=== PATIENT | female | born 1995 | race Caucasian/White ===

== ENCOUNTER 2024-04-05 10:20 | Inpatient (IN) | payer BC ==
[2024-04-05] MEDS ORDERED: Sodium Chloride 0.9% 10 ML Syringe FLUSH PRN (15:19)
[2024-04-05] MEDS ORDERED: Terbutaline 1 MG/ML SDV SUBCUT PRN (15:19)
[2024-04-05] MEDS ORDERED: Water For Irrigation,Sterile 1,000 ML Container IRR PRN (15:19)
[2024-04-05] MEDS ORDERED: Misoprostol 200 MCG Tab PO PRN (15:19)
[2024-04-05] MEDS ORDERED: Methylergonovine 0.2 MG/1 ML Amp IM PRN (15:19)
[2024-04-05] MEDS ORDERED: Sodium Chloride 0.9% 2.5 ML Syringe FLUSH PRN (15:19)
[2024-04-05] MEDS ORDERED: Sodium Chloride 0.9% 20 ML SDV IV PRN (15:19)
[2024-04-05] MEDS ORDERED: Tranexamic Acid in NACL,ISO-OS 1,000 MG in Premix Bag 1 BAG IV PRN (15:19)
[2024-04-05] MEDS ORDERED: Butorphanol 2 MG/ML SDV IVPUSH PRN (15:19)
[2024-04-05] MEDS ORDERED: Ondansetron 4 MG/2 ML SDV IVPUSH PRN (15:19)
[2024-04-05] MEDS ORDERED: Lidocaine 1% 50 ML MDV INJECT PRN (15:19)
[2024-04-05] MEDS ORDERED: Carboprost Tromethamine 250 MCG/1 mL Vial IM PRN (15:19)
[2024-04-05] MEDS ORDERED: Oxytocin/0.9 % Sodium Chloride 30 UNIT/500 ML BAG IV SCH (15:30)
[2024-04-05] MEDS ORDERED: ePHEDrine 50 MG/ML SDV IVPUSH PRN (16:52)
[2024-04-05] MEDS ORDERED: Phenylephrine HCl In 0.9% NaCl 1 MG/10 ML Syringe IVPUSH PRN (16:52)
[2024-04-05] MEDS: Misoprostol 25 MCG (1/4 of 100 MCG) Tab VAG PRN (16:54)
[2024-04-05] MEDS: Lactated Ringers 1,000 ML IV SCH (17:00)
[2024-04-05] MEDS ORDERED: dexmedeTOMIDine HCl 200 MCG/2 ML SDV EPIDUR SCH (17:00)
[2024-04-05 17:36] LABS: HEMATOCRIT 33.6 % (37.0-47.0); HEMOGLOBIN 11.6 g/dL (12.0-16.0); MEAN CORPUSCULAR HEMOGLOBIN 31.9 pg (28.0-32.0); MEAN CORPUSCULAR HGB CONC 34.5 g/dL (32.0-36.0); MEAN CORPUSCULAR VOLUME 92.3 fL (83.0-99.0); MEAN PLATELET VOLUME 9.9 fL (9.4-12.3); PLATELET COUNT,PLT 239 K/uL (150-400); RED BLOOD CELL COUNT 3.64 M/uL (4.10-5.30); WHITE BLOOD CELL COUNT,WBC 10.37 K/uL (3.9-11.3)
[2024-04-05] MEDS: Ropivacaine HCl/PF 400 MG in Premix Bag 1 BAG EPIDUR SCH (21:06)
[2024-04-05] MEDS: Oxytocin/0.9 % Sodium Chloride 30 UNIT/500 ML BAG IV SCH (23:54)
[2024-04-06] MEDS ORDERED: Ibuprofen 800 MG Tab PO PRN (07:27)
[2024-04-06] MEDS ORDERED: Methylergonovine 0.2 MG/1 ML Amp IM PRN (07:27)
[2024-04-06] MEDS ORDERED: Misoprostol 200 MCG Tab RECTAL PRN (07:27)
[2024-04-06] MEDS ORDERED: Docusate Sodium 100 MG Cap PO PRN (07:27)
[2024-04-06 07:41] LABS: PH,UMBILICAL ARTERIAL 7.201 (7.18-7.38); PH,UMBILICAL VENOUS 7.238 (7.25-7.45)
[2024-04-06] MEDS: Benzocaine/Menthol 20%-0.5% Spray 78 GM Cannister TOP PRN (08:40)
[2024-04-06] MEDS: Lanolin 100% Cream 7 GM Tube TOP PRN (08:40)
[2024-04-06] MEDS: Witch Hazel Medicated Pads 40/Jar TOP PRN (08:41)
[2024-04-06 15:30] LABS: HEMATOCRIT 33.5 % (37.0-47.0); HEMOGLOBIN 11.3 g/dL (12.0-16.0); MEAN CORPUSCULAR HEMOGLOBIN 31.5 pg (28.0-32.0); MEAN CORPUSCULAR HGB CONC 33.7 g/dL (32.0-36.0); MEAN CORPUSCULAR VOLUME 93.3 fL (83.0-99.0); MEAN PLATELET VOLUME 9.9 fL (9.4-12.3); PLATELET COUNT,PLT 216 K/uL (150-400); RED BLOOD CELL COUNT 3.59 M/uL (4.10-5.30); WHITE BLOOD CELL COUNT,WBC 17.49 K/uL (3.9-11.3)
[2024-04-06] MEDS: Acetaminophen 500 MG Tab PO PRN (18:04)
== END 2024-04-06 18:21 | disposition home or self-care (01) | DRG 560 ==
LOC: MW.OBCHECK 10:20 → MW.OB 10:22 → MW.OBCHECK 15:18 → MW.OB 15:19 → OBSVTOIN 04-06 06:00 → MW.OB 04-06 09:00
PROVIDERS: ADMIT Obstetrics & Gynecology; ATTEND Obstetrics & Gynecology
PROC: 10D07Z6 Extraction of Products of Conception, Vacuum, Via Natural or Artificial Opening (ICD-10-PCS; principal; 2024-04-06)
PROC: 3E033VJ Introduction of Other Hormone into Peripheral Vein, Percutaneous Approach (ICD-10-PCS; 2024-04-06)
PROC: 3E0P7VZ Introduction of Hormone into Female Reproductive, Via Natural or Artificial Opening (ICD-10-PCS; 2024-04-06)
PROC: 3E0R3BZ Introduction of Anesthetic Agent into Spinal Canal, Percutaneous Approach (ICD-10-PCS; 2024-04-06)
PROC: 00HU33Z Insertion of Infusion Device into Spinal Canal, Percutaneous Approach (ICD-10-PCS; 2024-04-06)
DX: O48.0 Post-term pregnancy (principal); Z37.0 Single live birth; O69.81X0 Labor and delivery complicated by cord around neck, without compression, not applicable or unspecified; O76 Abnormality in fetal heart rate and rhythm complicating labor and delivery; O77.0 Labor and delivery complicated by meconium in amniotic fluid; Z3A.40 40 weeks gestation of pregnancy
CPT/HCPCS: 36415; 59025; 59409; 82803; 85027; 86592; 86850; 86900; 86901; A9270-GY; J2590; J2795; J7120